=== PATIENT | female | born 1935 | race Caucasian/White ===

== ENCOUNTER 2018-06-11 19:36 | Emergency (ER) | payer OTHER ==
[~2018-06-11] VITALS: Ht 165.1 cm; Wt 63.5 kg
[2018-06-11 19:48] VITALS: BP_SYST 150
--- NOTE | 2018-06-11 20:00 | NUR ---
Pt BIB BLS, placed to ER bed 03. Pt from [facility] s/p ground level slip and fall with c/o left hip pain. -head trauma or KO. Per BLS, pt was ambulatory on scene. Pt AAOx2, hx of dementia. Pt states "Nothing is hurting me." With PROM to LLE, Pt states, "It's not pain, but it's hurting." Pt then points to Left hip and states, "It's really getting to me." VSS.
[2018-06-11] MEDS ORDERED: CALC200T47 PO (20:09)
[2018-06-11] MEDS ORDERED: LEVO25TA7 PO (20:09)
[2018-06-11] MEDS ORDERED: [UNRECOGNIZED DRUG - CODE] OP (20:09)
[2018-06-11] MEDS ORDERED: MONT10TA22 PO (20:09)
[2018-06-11] MEDS ORDERED: CHOL500037 PO (20:09)
[2018-06-11] MEDS ORDERED: MULT-1089 PO (20:09)
[2018-06-11] MEDS ORDERED: TRIA15CR3 TP (20:09)
[2018-06-11] MEDS ORDERED: DONE10TA44 PO (20:09)
[2018-06-11] MEDS ORDERED: RISP0.5T5 PO (20:09)
[2018-06-11] MEDS ORDERED: OMEG100011 PO (20:09)
[2018-06-11] MEDS ORDERED: ALPR0.25 PO (20:09)
--- NOTE | 2018-06-11 20:10 | NUR ---
Medication reconciliation completed with information provided by PT. Any prior medication reconciliation on file was reviewed and corrected.
--- NOTE | 2018-06-11 20:18 | NUR ---
Patient to ER bed 03 for evaluation. Side rails up.
--- NOTE | 2018-06-11 20:22 | NUR ---
Dr. Baca at bedside.
[2018-06-11] MEDS ORDERED: ACETAMINOPHEN 325 MG TABLET PO ONE (20:30)
--- NOTE | 2018-06-11 20:47 | NUR ---
Pt.'s son at bedside, updated on POC.
[2018-06-11 21:35] VITALS: BP_SYST 135
--- NOTE | 2018-06-11 21:35 | NUR ---
Patient given written and verbal discharge instructions and verbalizes understanding. ER MD discussed with patient the results and treatment provided. Patient in stable condition. ID arm band removed. No Rx given. Patient educated on pain management and to follow up with PMD. Pain Scale 1/10. Opportunity for questions provided and answered. Medication side effect fact sheet provided.
== END 2018-06-11 21:35 ==
LOC: SED 19:36
DX: M25.552 Pain in left hip (principal); F03.90 Unspecified dementia, unspecified severity, without behavioral disturbance, psychotic disturbance, mood disturbance, and anxiety; R03.0 Elevated blood-pressure reading, without diagnosis of hypertension; Z79.899 Other long term (current) drug therapy; W01.0XXA Fall on same level from slipping, tripping and stumbling without subsequent striking against object, initial encounter; Y93.89 Activity, other specified; Y92.89 Other specified places as the place of occurrence of the external cause; Y99.8 Other external cause status
CPT/HCPCS: 72170-TC; 99283

== ENCOUNTER 2018-06-24 20:44 | Emergency (ER) | payer OTHER ==
[~2018-06-24] VITALS: Ht 162.6 cm; Wt 54.4 kg
[2018-06-24 20:44] VITALS: BP_SYST 159
[~2018-06-24 20:44] MED LIST: ALPR0.25 PO; CALC200T47 PO; CHOL500037 PO; DONE10TA44 PO; LEVO25TA7 PO; MONT10TA22 PO; MULT-1089 PO; OMEG100010 PO; RISP0.5T5 PO; TRIA15CR3 TP; [UNRECOGNIZED DRUG - CODE] OP
[2018-06-24] MEDS ORDERED: MORPHINE 4 MG/ML INJ. SYRINGE IM ONE (21:00)
[2018-06-24] MEDS ORDERED: CALC1CAP18 PO (21:15)
[2018-06-24] MEDS ORDERED: CHOL500013 PO (21:17)
[2018-06-24] MEDS ORDERED: CHOL50004 PO (21:17)
[2018-06-24] MEDS ORDERED: ALPR1TAB2 PO (21:19)
[2018-06-24] MEDS ORDERED: FISH12002 PO (21:19)
[2018-06-24] MEDS ORDERED: DONE5TAB26 PO (21:21)
[2018-06-24 23:50] VITALS: BP_SYST 157
== END 2018-06-24 23:50 | disposition home or self-care (01) ==
LOC: SED 20:44
DX: S33.5XXA Sprain of ligaments of lumbar spine, initial encounter (principal); E03.9 Hypothyroidism, unspecified; F03.91 Unspecified dementia, unspecified severity, with behavioral disturbance; F41.9 Anxiety disorder, unspecified; Z85.3 Personal history of malignant neoplasm of breast; Z91.041 Radiographic dye allergy status; Z79.899 Other long term (current) drug therapy; W01.0XXA Fall on same level from slipping, tripping and stumbling without subsequent striking against object, initial encounter; Y93.01 Activity, walking, marching and hiking; Y92.89 Other specified places as the place of occurrence of the external cause; Y99.8 Other external cause status
CPT/HCPCS: 72072; 72110; 72170; 72220; 96372; 99283; J2270